=== PATIENT | female | born 1960 | race Caucasian/White ===

== ENCOUNTER 2018-04-02 05:49 | Day surgery (SDC) | payer SELFPAY ==
[~2018-04-02 05:49] MED LIST: Buffered Lidocaine 1% SYRIN* 1 ML/SYRINGE INTRADERM ONE
[2018-04-02] MEDS ORDERED: Lactated Ringers 1000 ML Bag* 1,000 ML IV SCH (06:00)
[2018-04-02] MEDS ORDERED: Dexamethasone IV* 4 MG/ML 1 ML (4 MG) IV SLOW PU ONE (06:00)
[2018-04-02] MEDS ORDERED: Famotidine IV* 10 MG/ML 2 ML (20 mg) IV ONE (06:00)
[2018-04-02] MEDS ORDERED: ceFAZolin 2 GM PREMIX in ORs 2 GM/50 ML BAG IVPB ONE (06:43)
[2018-04-02] MEDS ORDERED: Famotidine IV* 10 MG/ML 2 ML (20 mg) ONE (06:43)
[2018-04-02] MEDS ORDERED: Dexamethasone IV* 4 MG/ML 1 ML (4 MG) ONE (06:43)
[2018-04-02] MEDS ORDERED: BSS OPTH.SOL* BTL ONE ×2 (06:50→08:21)
[2018-04-02] MEDS ORDERED: Artificial Tear OPHTH.OINT* 3.5 GM ONE (06:50)
[2018-04-02] MEDS ORDERED: Bupivacaine 0.25% W/EPI* 10 ML SDV ONE (06:50)
[2018-04-02] MEDS ORDERED: Lidocaine 1% MPF wEPI 200,000* 30 ML SDV ONE (06:51)
[2018-04-02] MEDS ORDERED: Bacitracin OINTMENT* 0.5% 0.5 oz TUBE ONE (06:51)
[2018-04-02] MEDS ORDERED: Bupivacaine 0.5%* 50 ML VIAL ONE (06:51)
[2018-04-02] MEDS ORDERED: Lidocaine 1% INJ* 10 MG/ML 30 ML SDV ONE (06:58)
[2018-04-02] MEDS ORDERED: Lidocain 1% EPI 1:100,000 * 30 ML MDV ONE (07:14)
[2018-04-02] MEDS ORDERED: fentaNYL* 50 MCG/ML 2 ML VIAL (100 MCG VIAL) ONE (07:15)
[2018-04-02] MEDS ORDERED: Midazolam* 1 MG/ML 2 ML VIAL (2 MG) ONE (07:15)
[2018-04-02] MEDS ORDERED: Propofol* 10 MG/ML 20 ML BTL ONE (07:16)
[2018-04-02] MEDS ORDERED: Propofol* 500 MG/50 ML BTL ONE (07:16)
[2018-04-02] MEDS ORDERED: oxyCODONE/Acetamin 5/325 MG* TAB PO PRN (08:08)
[2018-04-02] MEDS ORDERED: Naloxone* 0.4 MG/ML 1 ML VIAL IV PRN (08:08)
[2018-04-02] MEDS ORDERED: Ondansetron INJ* 2 MG/ML VIAL IV PRN (08:08)
[2018-04-02] MEDS ORDERED: Acetaminophen TAB* 325 MG PO PRN (08:08)
[2018-04-02] MEDS ORDERED: Ibuprofen TAB* 600 MG PO PRN (08:08)
[2018-04-02] MEDS ORDERED: fentaNYL* 50 MCG/ML 2 ML VIAL (100 MCG VIAL) IV PRN (08:08)
[2018-04-02] MEDS ORDERED: DiMENhydriNATE IV* 50 MG/ML VIAL IV PUSH PRN (08:08)
[2018-04-02 09:30] VITALS: BP 138/82
== END 2018-04-02 09:46 | disposition home or self-care (01) ==
LOC: OR 05:49
PROVIDERS: ATTEND Plastic Surgery
DX: Z41.1 Encounter for cosmetic surgery (principal); Z87.891 Personal history of nicotine dependence; R00.2 Palpitations; R06.00 Dyspnea, unspecified
CPT/HCPCS: 88300; A9270-GY; J0690; J1100; J2001; J2250; J2704; J3010